=== PATIENT | female | born 1985 | race Caucasian/White ===

== ENCOUNTER 2019-06-17 07:16 | Emergency (ER) | payer BC ==
[~2019-06-17] VITALS: Ht 152.4 cm; Wt 52.2 kg
[2019-06-17 07:51] VITALS: BP 128/59
[2019-06-17 08:56] LABS: CALCIUM 8.9 mg/dL (8.5-10.1); CREATININE 0.8 mg/dL (0.6-1.0); GFR 83.1; POTASSIUM 3.8 mmol/L (3.5-5.1)
[2019-06-17 09:18] LABS: BASO # 0.1 x10^3/uL (0.0-0.2); BASO % 1 % (0-3); EOS % 0 % (0-3); HEMATOCRIT 41.1 % (36.0-47.0); LYMPH # 1.8 x10^3/uL (1.0-4.8); LYMPH % 19 % (24-48); MEAN CORPUSCULAR HEMOGLOBIN 31 pg (25-35); MEAN CORPUSCULAR HGB CONC 34 g/dL (31-37); MEAN CORPUSCULAR VOLUME 93 fL (79-100); MONO # 0.5 x10^3/uL (0.0-1.1); MONO % 5 % (0-9); NEUT # 7.3 x10^3/uL (1.8-7.7); NEUT % 75 % (31-73); PLATELET COUNT 270 x10^3/uL (140-400); RED BLOOD COUNT 4.45 x10^6/uL (3.50-5.40); RED CELL DISTRIBUTION WIDTH 12.5 % (11.5-14.5); WHITE BLOOD COUNT 9.8 x10^3/uL (4.0-11.0)
--- NOTE | 2019-06-17 10:25 | RAD ---
Obstetric ultrasound less than 14 weeks with transvaginal: Reason for examination: Vaginal bleeding. 5 weeks . History of ectopic. Transabdominal and transvaginal ultrasound examination of the pelvis was performed. Transabdominally, the uterus measures 10 x 4.2 x 6.2 cm in greatest dimensions. No uterine mass is seen. Endometrium however is thickened at 13.7 mm. There does appear to be a fibroid measuring 2.1 x 1.8 x 1.7 cm present on the left. The left ovary measures 2.9 x 1.3 x 2.2 cm in greatest dimension with good vascular flow. The right ovary measures 3.6 x 2.0 x 3.5 cm in greatest dimension with a 1.2 cm cystic structure seen which may represent a corpus luteal cyst. Transvaginally, the endometrium is thickened at 1.4 cm without an intrauterine or ectopic gestation evident. Uterine fibroid is present measuring 2.1 cm in greatest dimension. Left ovary shows normal vascular flow and no mass. Right ovary contains a cyst consistent with a corpus luteal cyst. There is a small amount of fluid adjacent to the right ovary. IMPRESSION: No evidence of intrauterine uterine or ectopic gestation. 2.1 cm fibroid in the uterus. Probable corpus luteal cyst in the right ovary measuring approximately 2 cm in greatest dimension. Small amount of free fluid in the right adnexa. Recommend follow-up with ultrasound and hCG levels. Electronically signed by: Sammi Pleitez MD (06/17/2019 10:22 AM) [facility]
--- NOTE | 2019-06-17 10:35 | PHYS DOC ---
Past Medical History Past Medical History: No Pertinent History Past Surgical History: Other Additional Past Surgical Histo: L. FALLOPIAN TUBE Alcohol Use: None Drug Use: None Social History Narrative: SOBER X2 YEARS Adult General Chief Complaint Chief Complaint: VAGINAL BLEEDING [facility] Patient is a 34 year old female patient with history of previous ectopic pre gnancy complaining of vaginal bleeding during .complaining of vaginal bleeding .Patient is G4 ectopic 1, 2 with LMP of April 06 with complaining of vaginal bleeding that started this morning as a bright red blood with cramping abdominal pain earlier. She denies dizziness, nausea and vomiting, fever and chills, palpitation and shortness of breath. Patient had left ectopic with removal of tube. Review of Systems Review of Systems Constitutional: Denies fever or chills [] Eyes: Denies change in visual acuity, redness, or eye pain [] HENT: Denies nasal congestion or sore throat [] Respiratory: Denies cough or shortness of breath [] Cardiovascular: No additional information not addressed in [facility] [] GI: Denies nausea, vomiting, bloody stools or diarrhea , reports abdominal pain.[] : Denies dysuria or hematuria [] Musculoskeletal: Denies back pain or joint pain [] Integument: Denies rash or skin lesions [] Neurologic: Denies headache, focal weakness or sensory changes [] Endocrine: Denies polyuria or polydipsia [] All other systems were reviewed and found to be within normal limits, except as documented in this note. Allergies Allergies Allergies Coded Allergies Type Severity Reaction Last Updated Verified No Known Drug Allergies 06/17/19 No Physical Exam Physical Exam Constitutional: Well developed, well nourished, no acute distress, non-toxic appearance. [] HENT: Normocephalic, atraumatic, bilateral external ears normal, oropharynx chacha st, no oral exudates, nose normal. [] Eyes: PERRLA, EOMI, conjunctiva normal, no discharge. [] Neck: Normal range of motion, no tenderness, supple, no stridor. [] Cardiovascular:Heart rate regular rhythm, no murmur [] Lungs & Thorax: Bilateral breath sounds clear to auscultation [] Abdomen: Bowel sounds normal, soft, no tenderness, no masses, no pulsatile masses. [] Skin: Warm, dry, no erythema, no rash. [] Back: No tenderness, no CVA tenderness. [] Extremities: No tenderness, no cyanosis, no clubbing, ROM intact, no edema. [] Neurologic: Alert and oriented X 3, normal motor function, normal sensory function, no focal deficits noted. [] Psychologic: Affect normal, judgement normal, mood normal. [] Current Patient Data Vital Signs Vital Signs Date Time Temp Pulse Resp B/P (MAP) Pulse Ox O2 Delivery O2 Flow Rate FiO2 06/17/19 07:51 98.3 90 16 128/59 (82) 97 Room Air 98.3 Lab Values Laboratory Tests Test 06/17/19 07:35 06/17/19 07:48 06/17/19 09:15 Maternal Serum HCG Beta Subunit 1508 mIU/mL (0-5) H Sodium Level 137 mmol/L (136-145) Potassium Level 3.8 mmol/L (3.5-5.1) Chloride Level 105 mmol/L (98-107) Carbon Dioxide Level 24 mmol/L (21-32) Anion Gap 8 (6-14) Blood Urea Nitrogen 13 mg/dL (7-20) Creatinine 0.8 mg/dL (0.6-1.0) Estimated GFR (Cockcroft-Gault) 83.1 Glucose Level 116 mg/dL (70-99) H Calcium Level 8.9 mg/dL (8.5-10.1) POC Urine HCG, Qualitative Hcg positive (Negative) White Blood Count 9.8 x10^3/uL (4.0-11.0) Red Blood Count 4.45 x10^6/uL (3.50-5.40) Hemoglobin 14.0 g/dL (12.0-15.5) Hematocrit 41.1 % (36.0-47.0) Mean Corpuscular Volume 93 fL (79-100) Mean Corpuscular Hemoglobin 31 pg (25-35) Mean Corpuscular Hemoglobin Concent 34 g/dL (31-37) Red Cell Distribution Width 12.5 % (11.5-14.5) Platelet Count 270 x10^3/uL (140-400) Neutrophils (%) (Auto) 75 % (31-73) H Lymphocytes (%) (Auto) 19 % (24-48) L Monocytes (%) (Auto) 5 % (0-9) Eosinophils (%) (Auto) 0 % (0-3) Basophils (%) (Auto) 1 % (0-3) Neutrophils # (Auto) 7.3 x10^3/uL (1.8-7.7) Lymphocytes # (Auto) 1.8 x10^3/uL (1.0-4.8) Monocytes # (Auto) 0.5 x10^3/uL (0.0-1.1) Eosinophils # (Auto) 0.0 x10^3/uL (0.0-0.7) Basophils # (Auto) 0.1 x10^3/uL (0.0-0.2) Laboratory Tests 06/17/19 09:15 Laboratory Tests 06/17/19 07:35 EKG EKG [] Radiology/Procedures Radiology/Procedures [][facility] [address] [place] [address] IMAGING REPORT Signed PATIENT: RONALD MEDEIROS ACCOUNT: [id number] : 1985 LOCATION: ER AGE: 34 SEX: F EXAM STATUS: REG ER ORD. PHYSICIAN: MARIVEL DEL TORO MD REASON: vaginal bleeding, 5 weeks , history of ectopic PROCEDURE: OB <14 WKS W/TV Obstetric ultrasound less than 14 weeks with transvaginal: Reason for examination: Vaginal bleeding. 5 weeks . History of ectopic. Transabdominal and transvaginal ultrasound examination of the pelvis was performed. Transabdominally, the uterus measures 10 x 4.2 x 6.2 cm in greatest dimensions. No uterine mass is seen. Endometrium however is thickened at 13.7 mm. There does appear to be a fibroid measuring 2.1 x 1.8 x 1.7 cm present on the left. The left ovary measures 2.9 x 1.3 x 2.2 cm in greatest dimension with good vascular flow. The right ovary measures 3.6 x 2.0 x 3.5 cm in greatest dimension with a 1.2 cm cystic structure seen which may represent a corpus luteal cyst. Transvaginally, the endometrium is thickened at 1.4 cm without an intrauterine or ectopic gestation evident. Uterine fibroid is present measuring 2.1 cm in greatest dimension. Left ovary shows normal vascular flow and no mass. Right ovary contains a cyst consistent with a corpus luteal cyst. There is a small amount of fluid adjacent to the right ovary. IMPRESSION: No evidence of intrauterine uterine or ectopic gestation. 2.1 cm fibroid in the uterus. Probable corpus luteal cyst in the right ovary measuring approximately 2 cm in greatest dimension. Small amount of free fluid in the right adnexa. Recommend follow-up with ultrasound and hCG levels. Electronically signed by: Sammi Chapa MD (06/17/2019 10:22 AM) [facility] DICTATED and SIGNED BY: SAMMI CHAPA MD DATE: 06/17/19 1022 Course & Med Decision Making Course & Med Decision Making Pertinent Labs and Imaging studies reviewed. (See chart for details) Evaluation of patient in ER showed 34-year-old female patient with complaining of vaginal bleeding during . Ultrasound was questionable for possible ectopic . consulted at 1018 and recommended to follow up with [facility] in 2 days for repeat hCG level. Patient was advised to return to ER if not getting better or increasing symptoms. I've spoken with the patient and/or caregivers. I've explained the patient's condition, diagnosis and treatment plan based on information available to me at this time. I've answered the patient's and/or caregivers questions and addressed any concerns. The patient and/or caregivers have a good understanding the patient's diagnosis, condition and treatment plan as can be expected at this point. Vital signs have been stabilized. The patient's condition is stable for discharge from the emergency department. The patient will pursue further outpatient evaluation with her primary care provider or other designated consulting physician as outlined in the discharge instructions. Patient and/or caregivers are agreeable to this plan of care and follow-up instructions have been explained in detail. The patient and/or car egivers have received these instructions in written format and expressed understanding of these discharge instructions. The patient and her caregivers are aware that if any significant change in condition or worsening of symptoms should prompt him to immediately return to this of the closest emergency department. If an emergent department is not readily available I would encourage him to call 911. Kristian Disclaimer Dragon Disclaimer This electronic medical record was generated, in whole or in part, using a voice recognition dictation system. Departure Departure Impression: Primary Impression: Abdominal pain during Disposition: 01 HOME, SELF-CARE Condition: STABLE Referrals: UNKNOWN PCP NAME (PCP) JAYDEN HURLEY MD Patient Instructions: Abdominal Pain During , Ectopic Additional Instructions: Follow-up with [facility] in 2 days for repeat hCG level and OB ultrasound Return to ER if not getting better Problem Qualifiers Primary Impression: Abdominal pain during Trimester: first trimester Qualified Codes: O26.891 - Other specified related conditions, first trimester; R10.9 - Unspecified abdominal pain MARIVEL DEL TORO MD Jun 17, 2019 10:35
== END 2019-06-17 11:07 | disposition home or self-care (01) ==
LOC: ER 07:16
DX: O26.891 Other specified pregnancy related conditions, first trimester (principal); R10.9 Unspecified abdominal pain; O46.91 Antepartum hemorrhage, unspecified, first trimester; Z3A.01 Less than 8 weeks gestation of pregnancy; Z98.890 Other specified postprocedural states
CPT/HCPCS: 36415; 76801; 76817; 80048; 81025; 84702; 85025; 86900; 86901; 99285